=== PATIENT | male | born 1945 | race Caucasian/White ===

== ENCOUNTER 2021-11-29 07:19 | Day surgery (SDC) | payer OTHER ==
[~2021-11-29] VITALS: Ht 182.9 cm; Wt 68.1 kg
[~2021-11-29 07:19] MED LIST: ACETAMINOPHEN 500 MG TABLET PO PRN; ASCO500T4 PO; BUPIVACAINE-EPI 0.25% 30 ML VIAL KIT. ONE; DILT180C67 PO; HYDROmorphone 2 MG/ML INJ. IVP PRN; IV RINGERS,LACTATED 1000ML 1,000 ML IV SCH; KRIL1CAP10 PO; MORPHINE SULFATE 2 MG/ML INJ. IVP PRN; OMEG1CAP38 PO; PROCHLORPERAZINE 10 MG/2 ML VIAL. IVP PRN; WARF-31 PO; ceFAZolin SODIUM IV Push 1 GM VIAL. IVP PRN; fentaNYL PF VIAL 100 MCG/2 ML VIAL IVP PRN
[2021-11-29] MEDS ORDERED: ALEN70TA71 PO (07:46)
[2021-11-29] MEDS ORDERED: PROPOFOL 10 MG/ML (20ML) VIAL. IV ONE (08:03)
[2021-11-29] MEDS ORDERED: LIDOCAINE 2% PF 5 ML VIAL. ONE (08:03)
[2021-11-29] MEDS ORDERED: ONDANSETRON PF 4 MG/2 ML VIAL. ONE (08:03)
[2021-11-29] MEDS ORDERED: FAMOTIDINE 20 MG/2 ML VIAL ONE (08:03)
[2021-11-29] MEDS ORDERED: DEXAMETHASONE SOD PHOS 4 MG/ML VIAL ONE (08:03)
[2021-11-29] MEDS ORDERED: fentaNYL PF VIAL 100 MCG/2 ML VIAL ONE (08:04)
[2021-11-29] MEDS ORDERED: MIDAZOLAM HCL/PF 2 MG/2 ML VIAL. ONE (08:04)
[2021-11-29 08:05] LABS: PROTHROMBIN TIME PATIENT 13.3 SEC (11.7-14.0)
--- NOTE | 2021-11-29 09:00 | PDOC4 ---
Operative Note Operative Note Date: November 292021 at 8:58 AM Preoperative diagnosis: Elevated CPK and muscle weakness Postoperative diagnosis: Same Procedure: Left thigh muscle biopsy Surgeon: Stanley Specimen: Left thigh muscle Dictation: Patient is a 76-year-old male who is had muscle weakness pain and elevated CPK levels. There is request for a muscle biopsy procedure muscle biopsy was explained to the patient detail risk benefits were also discussed including bleeding infection alternatives this procedure also discussed with patient who seemed to understand and gave a verbal written consent to have the procedure performed. Patient was taken to the operating room placed in supine position general anesthesia was initiated once patient was sleeping intubated his left thigh was prepped and draped usual sterile fashion using ChloraPrep. Area over the incision site was injected with quarter percent Marcaine with epinephrine incision made with 10 blade scalpel this is carried down through the subcutaneous tissue using electrocautery for hemostasis the fascia was incised with Metzenbaum scissors. A section of muscle was placed between the muscle clamps and then resected with Metzenbaum scissors and sent fresh to pathology. Wound was closed in 2 layers the fascia was closed with a running 3-0 Vicryl and the skin was reapproximated for subcuticular Monocryl Mastisol Steri-Strips and island dressings were applied. Patient was awakened and extubated operating room taken to recovery in stable condition all sponge instrument needle counts listed as correct estimated blood loss 5 mL BLANCA SHARMA MD Nov 29, 2021 09:00
--- NOTE | 2021-11-29 09:02 | DISCH ---
DISCHARGE INSTRUCTIONS Condition on Discharge Condition on Discharge: Stable Activity After Discharge Activity Instructions for Disc: Activity as tolerated Diet after Discharge Diet after Discharge: Cardiac Wound Incision Care Wound/Incision Care: May get incision wet Other wound/incision instructi: May shower in 24-hour Contacting the DRTheodore after DC Call your doctor for: If your condition worsens Follow-Up Follow up with: Dr. Sharma in 2-week Treatment/Equipment after DC Adaptive Equipment Issued: None BLANCA SHARMA MD Nov 29, 2021 09:02
[2021-11-29] MEDS ORDERED: LABETALOL 20 MG/4 ML DISP.SYRIN. IVP PRN (09:45)
[2021-11-29] MEDS ORDERED: LABETALOL 20 MG/4 ML DISP.SYRIN. IVP ONE (09:48)
[2021-11-29 10:00] VITALS: BP 116/65
== END 2021-11-29 10:46 | disposition home or self-care (01) ==
LOC: SURG 07:19
PROVIDERS: ATTEND Surgery
DX: M62.81 Muscle weakness (generalized) (principal); I48.91 Unspecified atrial fibrillation; I10 Essential (primary) hypertension; K21.9 Gastro-esophageal reflux disease without esophagitis; M19.90 Unspecified osteoarthritis, unspecified site; Z85.828 Personal history of other malignant neoplasm of skin; Z79.899 Other long term (current) drug therapy; Z98.890 Other specified postprocedural states
CPT/HCPCS: 20205; 36415; 85610; 88300; A4930; J0690; J1100; J2250; J2405; J2704; J3010; J3490